=== PATIENT | female | born 1985 | race Caucasian/White ===

== ENCOUNTER 2023-05-31 20:29 | Emergency (ER) | payer OTHER ==
[~2023-05-31] VITALS: Ht 165.1 cm; Wt 54.4 kg
[2023-05-31 23:59] VITALS: BP 122/76
[2023-06-01] MEDS ORDERED: OXYC5 PO (00:31)
== END 2023-06-01 00:40 | disposition home or self-care (01) ==
LOC: ER 20:29
DX: S39.012A Strain of muscle, fascia and tendon of lower back, initial encounter (principal); S76.011A Strain of muscle, fascia and tendon of right hip, initial encounter; V89.2XXA Person injured in unspecified motor-vehicle accident, traffic, initial encounter
CPT/HCPCS: 74176; 84702; 99284-25; A9270